=== PATIENT | female | born 1950 | race Caucasian/White ===

== ENCOUNTER 2022-05-22 08:01 | Outpatient (CLI) | payer OTHER, SELFPAY ==
[2022-05-22 13:53] LABS: Albumin* 4.4 g/dL (3.3-5.0); Chloride* 104 mmol/L (96-114)
[2022-05-22 13:54] LABS: Potassium* 3.8 mmol/L (3.6-5.1); Sodium* 139 mmol/L (135-149)
[2022-05-22 13:56] LABS: Carbon Dioxide* 25 mmol/L (20-32); Cholesterol* 151 mg/dL (90-199)
[2022-05-22 13:57] LABS: Alanine Aminotransferase* 44 U/L (4-35); Alkaline Phosphatase* 103 U/L (40-150); Aspartate Amino Transferase* 33 U/L (12-35); Bilirubin Total* 0.7 mg/dL (0.1-1.5); Blood Urea Nitrogen* 20 mg/dL (7-30); Calcium* 9.3 mg/dL (8.4-10.6); Creatinine* 0.9 mg/dL (0.5-1.5); Estimated Glomerular Filt Rate 69 ml/min; Glucose* 101 mg/dL (60-115); HDL Cholesterol* 34 mg/dL (>=50); LDL Cholesterol Calculated 80 mg/dL (<100); Total Protein* 7.7 g/dL (6.0-8.3); Triglycerides* 187 mg/dL (40-149)
[2022-05-22 14:12] LABS: Vitamin D 25 Hydroxy* 42 ng/mL (30-80)
[2022-05-22 14:43] LABS: Hepatitis C Virus Antibody* Negative (Negative)
== END 2022-05-22 08:02 | disposition home or self-care (01) ==
PROVIDERS: PCP Physician Assistant Medical; Visit Provider Family Medicine
DX: Z00.00 Encounter for general adult medical examination without abnormal findings (principal); Z11.59 Encounter for screening for other viral diseases; E03.9 Hypothyroidism, unspecified; R53.83 Other fatigue; Z13.6 Encounter for screening for cardiovascular disorders
CPT/HCPCS: 80053; 80061; 82306; 84439; 84443; 86803

== ENCOUNTER 2022-08-07 07:59 | Outpatient (CLI) | payer OTHER, SELFPAY ==
[2022-08-07 15:12] LABS: TSH With Reflex to FT4* 0.489 uIU/mL (0.270-4.200)
== END 2022-08-07 08:00 | disposition home or self-care (01) ==
LOC: FRMREF 08:00
PROVIDERS: PCP Physician Assistant Medical; Visit Provider Family Medicine
DX: E03.9 Hypothyroidism, unspecified (principal)
CPT/HCPCS: 84443

== ENCOUNTER 2022-08-24 15:21 | Outpatient (CLI) | payer OTHER, SELFPAY ==
--- NOTE | 2022-08-24 15:30 | CRLHL7_ITS ---
For Patients: As a result of the Century Cures Act, medical imaging exams and procedure reports are released immediately into your electronic medical record. You may view this report before your referring provider. If you have questions, please contact your health care provider. Indication: Cervical radiculopathy Technique: Multiplanar, multisequence MRI of the cervical spine obtained without contrast. Comparison: Cervical spine x-ray 08/14/2022 Findings: Straightening of the cervical lordosis. No significant spondylolisthesis. No evidence of acute fracture. No focal bony edema or suspicious marrow lesion. There appears to be mild baseline narrowing of the spinal canal, likely on a congenital basis. Incidentally noted partially empty sella variant. Included posterior fossa structures are otherwise unremarkable. The visualized spinal cord appears normal in course and caliber. However, there is mild cord flattening secondary to degenerative disc changes at C3-4, without evidence of cord compression or convincing cord signal abnormality. No suspicious findings in the prevertebral or paraspinal soft tissues. C2-C3: Facet arthropathy. Mild right neural foraminal narrowing. No left neural foraminal stenosis. Mild spinal canal narrowing. C3-C4: Central disc protrusion, uncovertebral/facet arthropathy. No significant neural foraminal stenosis. Moderate spinal canal stenosis. C4-C5: Mild uncovertebral/facet arthropathy. Mild bilateral neural foraminal narrowing. Mild spinal canal narrowing. C5-C6: Shallow disc-osteophyte complex, uncovertebral/facet arthropathy. Mild-moderate bilateral neural foraminal narrowing. Mild spinal canal narrowing. C6-C7: Disc-osteophyte complex, uncovertebral/facet arthropathy. Mild bilateral neural foraminal narrowing. Mild spinal canal narrowing. C7-T1: Shallow right subarticular disc bulge. No significant neural foraminal or spinal canal stenosis. Impression: 1. Cervical spondylosis superimposed on mild, presumably congenital baseline narrowing of the cervical spinal canal. 2. At C3-4, central disc protrusion contributing to moderate spinal canal stenosis. 3. Scattered mild-moderate neural foraminal narrowing and mild spinal canal narrowing elsewhere as detailed. 4. No evidence of cord compression or convincing cord signal abnormality. Dictated by Julia Marcus MD @ 08/25/2022 9:34:44 AM (Electronically Signed)
== END 2022-08-24 15:22 | disposition home or self-care (01) ==
LOC: MRI 15:25
PROVIDERS: PCP Physician Assistant Medical; Visit Provider Family Medicine
DX: M54.12 Radiculopathy, cervical region (principal); M47.812 Spondylosis without myelopathy or radiculopathy, cervical region; M50.21 Other cervical disc displacement, high cervical region; M50.30 Other cervical disc degeneration, unspecified cervical region
CPT/HCPCS: 72141

== ENCOUNTER 2022-09-13 16:00 | Outpatient (RCR) | payer OTHER, SELFPAY ==
--- NOTE | 2022-01-18 11:12 | PT.OPE ---
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 Pt presents in a sling today. Pt complains of pain in her neck, not so much in the shoulder, and says that she is struggling to sleep at night due to the pain despite use of pain pills. Pt reports that when she wakes in the night it is helpful for her to walk around her house and this helps her to relax. Pain Comments Date of Last Physician Visit 01/10/22 Current Work Status Retired Precautions Treatment Precautions/Contraindications PROM until 02/01/22. May start AAROM @ 5 weeks post-op Objective Palpation Pt very tender/sore with palpation to L UT, levator, scalenes, and pec minor. Other/Pertinent Objective L shoulder PROM Flexion - 90 Abduction - 90 IR - 45 ER - 0 Assessment Assessment/Impression Pt is a 71 year old female who presents to OP PT clinic post -op L RCR. Pt is struggling to manage her pain with pain pills and notes that her pain has been high since surgery. Pt is struggling to sleep as well due to pain as well as wash under her L arm. Pt has expected PROM of L shoulder today and reports pain with movement. Pt struggles to relax while I move her arm despite noting that she understands she is to relax during this portion of the exam. This is common for patient's who have had this surgery. Expectations following surgery and throughout the rehabilitation process were reviewed with the patient as well as precautions following her surgery. Pt gives verbal understanding to all directions for exercises, use of sling, showering, sleeping, etc. Skilled PT services are medically necessary to address deficits and return patient to highest level of function. Recommend physical therapy sessions 1-2/week for 8-12 weeks. Pt agrees with this plan. Printout of HEP was given for I completion and pt gives verbal understanding of each exercise. Primary Functional Limitations Lifting, reaching, laying on L side Plan of Care Rehabilitation Potential Excellent Physical Therapy Goals STG - To be completed in 2-3 weeks: 1. Pt will demonstrate 120 degrees shoulder flexion to improve mobility and reduce risk of adhesive capsulitis. 2. Pt will report reduction in shoulder pain by factor of 2 so that they may sleep without waking due to pain while shifting position in the night . 3. Pt will report consistent use of sling to protect integrity of repaired supraspinatus tendon. LTG - To be completed in 8-12 weeks: 1. Pt to be I with HEP so that they may I manage progression of symptoms. 2. Pt will report ability to sleep throughout the night without waking due to pain so that they may wake well rested with reduced mental fatigue during working hours. 3. Pt will demo full and pain free shoulder ROM and strength so that they may reach cans on top shelf in pantry so she may return to cooking for her family members. Treatment Plan/Direct Interventions Electrical Stimulation,Heat, Joint Mobilization,Manual Therapy,Self-Care/Home Management,Therapeutic Exercises Frequency/Duration 1-2/week for 8-12 weeks Patient Will Be Discharged From Therapy Completion of LTG(s),Skills Plateau,Independent w/HEP, Independently Progressing Evaluation Billing Untimed Code Treatment Minutes 45 Complexity Low Certification Information Initial Certification Date 01/16/22 Ending Certification Date 04/16/22
--- NOTE | 2022-03-28 17:40 | PT.OPDN ---
PT [place] Outpatient Daily Note PT [facility] Outpatient Daily Note Start: 01/16/22 15:21 Freq: Status: Active Protocol: Document 03/28/22 16:54 CJT (Rec: 03/28/22 17:40 CJT [id number]) E-signed By Andrew Almonte, PT PT OP Daily Progress Note Visit Information Note Type Recert/Progress Note Visit Number [id number] Insurance Authorized Visits tbd Physician Authorized Visits eval and treat Insurance Information Recert Due Date 04/16/22 Insurance Name Other; See Comments Insurance Information/Comments [employer] Medical Diagnosis Post-op L RCR, SAD, GHD Treating Diagnosis M25.512 - L shoulder pain M25.612 - Stiffness of L shoulder Referring Jose A Long Subjective Subjective Pt reports I hurt all over today. Is not sure why but has a lot of muscle soreness throughout her chest and scapular regions. Home Exercise Home Exercise Comments [id number] Objective Other/Pertinent Objective Shoulder AROM, PROM Flexion - 141, 116 Abduction - 150, 111 ER at 30 - 30 degrees ER at 90 - Full IR - L3, 70 L shoulder strength graded as 4/5 MMT for all motions with pain limiting strength at this time. Median nerve tension test positive for reproducing pain into pts L bicep and forearm Patient Instructed in Risks/Benefits Yes Therapeutic Exercise Therapeutic Exercise Minutes (minutes) 30 Therapeutic Exercise: To Restore UBE x 6 minutes, backward, Functional Status seat 5 Pulleys into flexion, scaption , abduction x 20 ea Short lever flexion 2 x 10 reps Wall flexion, abduction stretch 2 x 45 ea Wall bicep/chest stretch 2 x 45 ea IR stretch behind back 2 x 45 Manual Therapy Techniques Manual Therapy Minutes (minutes) 10 Manual Therapy Techniques STM performed to L UT, levator , pec minor/major, biceps mm belly, rhomboids, thoracic paraspinals, infraspinatus, subscapularis, and teres group to reduce tissue tension and improve extensibility. Median nerve glides x 10 reps, 5 hold Treatment Minutes Timed Code Treatment Minutes 40 Total Treatment Time 40 Billing Units Manual Therapy Units 1 Therapeutic Exercise Units 2 Assessment/Impression Assessment/Impression Rossana is progressing as expected in therapy thus far. Her primary complaint continues to be pain into her L bicep and pec. Today she complains of muscle aches and numbness/tingling into L>R hands. Pt had covid several weeks ago so I am not concerned that she may be infected but encouraged her to test again, as muscle aches were her only symptoms when she was covid positive. Pts L shoulder AROM and PROM are WNL at this point in her rehabilitation and are showing improvements weekly. We recently progressed to light strengthening exercises and will continue to progress these as able as well as focus on consistent stretching. Rossana has been faithful with her HEP and this seems to be helping her to progress timely . Plan of Care Physical Therapy Goals STG - To be completed in 2-3 weeks: 1. Pt will demonstrate 120 degrees shoulder flexion to improve mobility and reduce risk of adhesive capsulitis. MET 2. Pt will report reduction in shoulder pain by factor of 2 so that they may sleep without waking due to pain while shifting position in the night . MET 3. Pt will report consistent use of sling to protect integrity of repaired supraspinatus tendon. MET LTG - To be completed in 8-12 weeks: 1. Pt to be I with HEP so that they may I manage progression of symptoms. 2. Pt will report ability to sleep throughout the night without waking due to pain so that they may wake well rested with reduced mental fatigue during working hours. 3. Pt will demo full and pain free shoulder ROM and strength so that they may reach cans on top shelf in pantry so she may return to cooking for her family members. Daily Plan of Care Continue per POC Certification I Certify That: Therapy Services Provided, Therapy Plan Established, Therapy Plan Reviewed
--- NOTE | 2022-06-22 17:38 | PT.OPDN ---
PT [place] Outpatient Daily Note PT [facility] Outpatient Daily Note Start: 01/16/22 15:21 Freq: Status: Active Protocol: Document 06/22/22 16:45 CJT (Rec: 06/22/22 17:38 CJT [id number]) E-signed By Andrew Almonte, PT PT OP Daily Progress Note Visit Information Note Type Recert/Progress Note Visit Number [id number] Insurance Authorized Visits +16 on 04/24-07/08 Insurance Information Recert Due Date 07/08/22 Insurance Name Other; See Comments Insurance Information/Comments [employer] Medical Diagnosis Post-op L RCR, SAD, GHD Treating Diagnosis M25.512 - L shoulder pain M25.612 - Stiffness of L shoulder Referring Jose A Long Subjective Subjective Pt reports pain this AM as well as swelling in supraclavicular region on L. Continues to have soreness in this region following last session. Pt to see Dr. Guerrero next week for f/u. Home Exercise Home Exercise Comments [id number] Objective Other/Pertinent Objective R Shoulder ROM Flexion/Abduction/IR/ER - 165/ 175/T8/90 L Shoulder AROM Flexion/Abduction/IR/ER - 130/ 140/L2/45 L shoulder PROM Flexion/Abduction/IR/ER - 165/ 165/70/70 R Shoulder Strength - 5/5 MMT for all Flexion - /5 MMT Abduction - /5 MMT IR - /5 MMT ER - /5 MMT Empty Can - /5 MMT L Shoulder Strength Flexion - 5/5 MMT Abduction - 4/5 MMT IR - 5/5 MMT ER - 4+/5 MMT Empty Can - 4+/5 MMT Scapular strength measured as 4/5 MMT B Patient Instructed in Risks/Benefits Yes Therapeutic Exercise Therapeutic Exercise Minutes (minutes) 18 Therapeutic Exercise: To Restore UBE x 6 minutes Functional Status Shoulder flexion/adduction/ extension with ORB x 15 ea Shoulder IR/ER with ORB x 15 ea Shoulder flexion stretch in standing x 60 Self Care Management Training Self-Care Activity Minutes (minutes) 2 Self Care Management Training Kin Tape applied to L UT region to reduce swelling. Other Interventions Provided Other Modalities Provided H-Wave - electrodes placed at anterior/posterior L shoulder, brachioradialis and tricep; intensity set to pt preference Other Modalities Untimed Minutes 20 Treatment Minutes Untimed Code Treatment Minutes 20 Timed Code Treatment Minutes 20 Total Treatment Time 40 Billing Units Therapeutic Exercise Units 1 Electrical Stimulation Units 1 Assessment/Impression Assessment/Impression Rossana has shown slow progress in therapy thus far and still has room for improvement in regard to her ROM, strength, and function. Strength was grossly measured as 4+/5 MMT today in her L shoulder at this time. Rossana's ROM has gradually been progressing following adhesive capsulitis, but her pain in her shoulder and elbow has been very limiting. She has also had some recent swelling in her supraclavicular region on L with accompanied pain. Kin Tape to the region seems to be helping with her swelling and pain at this time. As far as the pain in Rossana's elbow region, I am not sure the exact cause of this. Its seems to me that she has some referred pain to her elbow region from her shoulder as well as some lingering tennis elbow. Rossana's visit approval period ends on 07/08/2022 for this claim and I would recommend continued PT services beyond this time to ensure that she has fully restored ROM and strength in her L shoulder. Plan of Care Physical Therapy Goals STG - To be completed in 2-3 weeks: 1. Pt will demonstrate 120 degrees shoulder flexion to improve mobility and reduce risk of adhesive capsulitis. MET 2. Pt will report reduction in shoulder pain by factor of 2 so that they may sleep without waking due to pain while shifting position in the night . MET 3. Pt will report consistent use of sling to protect integrity of repaired supraspinatus tendon. MET LTG - To be completed in 8-12 weeks: 1. Pt to be I with HEP so that they may I manage progression of symptoms. 2. Pt will report ability to sleep throughout the night without waking due to pain so that they may wake well rested with reduced mental fatigue during working hours. 3. Pt will demo full and pain free shoulder ROM and strength so that they may reach cans on top shelf in pantry so she may return to cooking for her family members. Daily Plan of Care Continue per POC
== END 2022-09-14 14:48 | disposition home or self-care (01) ==
PROVIDERS: PCP Physician Assistant Medical; Visit Provider Physician Assistant Surgical
DX: M25.512 Pain in left shoulder (principal); Z51.89 Encounter for other specified aftercare
CPT/HCPCS: 97032; 97110; 97140; 97161; 97164; 97535; T1013

== ENCOUNTER 2022-09-19 08:24 | Outpatient (CLI) | payer OTHER, SELFPAY | END 2022-09-19 08:25 | disposition home or self-care (01) | PROVIDERS: PCP Physician Assistant Medical; Visit Provider Family Medicine | DX: R53.83 Other fatigue (principal); E03.9 Hypothyroidism, unspecified | CPT/HCPCS: 84443; 86140 ==

== ENCOUNTER 2022-12-06 14:30 | Outpatient (CLI) | payer OTHER, SELFPAY ==
--- NOTE | 2022-12-06 14:40 | CRLHL7_ITS ---
For Patients: As a result of the Century Cures Act, medical imaging exams and procedure reports are released immediately into your electronic medical record. You may view this report before your referring provider. If you have questions, please contact your health care provider. BILATERAL SCREENING MAMMOGRAM WITH COMPUTER-AIDED DETECTION AND TOMOSYNTHESIS TECHNIQUE: CC and MLO views were obtained. These mammographic images have been obtained using full-field digital technique. These mammographic images were interpreted with the benefit of computer-aided detection. Breast Tomosynthesis was used in this interpretation. COMPARISON FILM: 04/30/19, 05/02/17, 02/23/15. FINDINGS: There are scattered areas of fibroglandular density IMPRESSION: There is no radiographic evidence for malignancy. ASSESSMENT: BI-RADS Category 1: Negative RECOMMENDATION: Routine screening mammogram in 1 year. A lay language report of this examination will be provided to the patient. Eliecer Smyth M.D. Diagnostic Radiologist [email or web address] NOREEN/Dictated by: Eliecer Smyth MD @ 12/07/2022 12:28:00 PM (Electronically Signed)
== END 2022-12-06 14:31 | disposition home or self-care (01) ==
LOC: MAMMO 14:31
PROVIDERS: PCP Physician Assistant Medical; Visit Provider Family Medicine
DX: Z12.31 Encounter for screening mammogram for malignant neoplasm of breast (principal)
CPT/HCPCS: 77063; 77067; T1013

== ENCOUNTER 2022-12-27 15:15 | Outpatient (CLI) | payer OTHER, SELFPAY ==
--- NOTE | 2022-12-27 15:30 | MR_ITS ---
[address] [address] Phone:?[phone] Fax:?[phone] Referring Physician Information: Charlie Guerrero M.D. [address] [facility] [address] Phone:?[phone] Fax:?[phone] Patient:Zaheer Flower D.O.B:?1950 Sex:?Female Phone:?[phone] [facility] MRN:[id number] Exam Date:?12/27/2022 EXAM: MRI of the LEFT SHOULDER, without contrast CLINICAL HISTORY: Chronic left shoulder pain and decreased range of motion not improving with physical therapy. History of previous surgery to the left shoulder. COMPARISONS: Plain radiographs 11/10/2021. TECHNICAL: MRI sequences of the left shoulder: Axials: PD, T2 Coronals: PD, STIR, T2 Sagittals: PD, T2 SEDATION: None CONTRAST: None FINDINGS: Bones: No fracture or suspicious bone marrow signal abnormality is seen. Coracoacromial arch: Acromion: No os acromiale. Surgical changes status post acromioplasty are suspected. Acromiohumeral space: The bony distance is unremarkable. Coracohumeral space: The bony distance is unremarkable. Acromioclavicular joint: Surgical changes status post subacromial decompression are suspected. Coracoclavicular ligament: The coracoclavicular ligament is intact. Rotator cuff muscles/tendons: Supraspinatus and infraspinatus: There are surgical changes status post rotator cuff repair. There is a 3 mm in AP dimension recurrent full-thickness tear of the posterior portion of the supraspinatus tendon just proximal to a surgical anchor with 6 mm of proximal/medial retraction of torn tendon fibers best seen on coronal series 4 image 15 and sagittal series 8 images 9 through 11. There is no atrophy of the supraspinatus or infraspinatus muscles. Teres minor: The teres minor tendon and muscle are intact. Subscapularis: Mild subscapularis tendinopathy. No muscular atrophy. Labrum and glenohumeral joint: No evidence of labral tear although evaluation is suboptimal because of nonarthrogram technique. Physiologic amount of joint fluid. No full-thickness chondral defect or subchondral bone marrow edema/cystic change is seen. No convincing evidence of capsular edema or thickening although evaluation is suboptimal because of lack of joint distention. Proximal biceps tendon, long head and short heads: The long and short heads of the proximal biceps tendon are intact. Bursae: Subacromial/subdeltoid: There is a small amount of fluid within the subacromial/subdeltoid bursa. Subcoracoid: No convincing subcoracoid bursal thickening/bursitis. IMPRESSION: 1. Surgical changes status post rotator cuff repair and suspected subacromial decompression; correlate with surgical injury. 2. 3 mm in AP dimension recurrent full-thickness tear of the posterior portion of the supraspinatus tendon just proximal to a surgical anchor with 6 mm of proximal/medial retraction of torn tendon fibers. 3. Mild subscapularis tendinopathy. 4. No atrophy of the rotator cuff musculature. 5. Intact biceps tendon. RCB Electronically signed on 12/28/2022 7:49:00 AM by Albert López M.D.
== END 2022-12-27 15:16 | disposition home or self-care (01) ==
LOC: MRI 15:20
PROVIDERS: PCP Family Medicine; Visit Provider Orthopaedic Surgery Sports Medicine
DX: M25.512 Pain in left shoulder (principal); M75.102 Unspecified rotator cuff tear or rupture of left shoulder, not specified as traumatic; Z98.890 Other specified postprocedural states
CPT/HCPCS: 73221; T1013

== ENCOUNTER 2023-01-03 16:00 | Outpatient (RCR) | payer OTHER, SELFPAY ==
--- NOTE | 2022-10-11 15:15 | PT.OPE ---
PT [place] Outpatient Eval PT [facility] Outpatient Eval Start: 10/10/22 14:50 Freq: Status: Active Protocol: Document 10/10/22 16:41 CJT (Rec: 10/10/22 16:45 CJT [id number]) E-signed By Andrew Almonte PT Physical Therapy Outpatient Evaluation Insurance Information Recert Due Date 12/08/22 Insurance Name Other; See Comments Insurance Information/Comments [employer] Provider Medical Diagnosis M48.02 - Stenosis, cervical Treating Diagnosis M54.2 - cervicalgia Referring Zelda Morris MD; Marilyn Thompson PA-C Subjective Subjective Pt presents with neck pain. Pt ntose her pain is a little better since she was last in our clinic about 1.5 months ago. Pt complains of swelling in her L supraclavicular region. She notes that when the pain starts, the swelling increases and vice versa. Pain is usually worse in the morning after she gest out of bed and starts performing some of her chores, Otherwise she has not noticed a pattern with her pain. Sweeping makes the pain worse. Doing the dishes also make the pain worse. Rossana notes that she has to lean on the edge of the sink to do the dishes. My hands feel awkward. The pain in my neck and shoulder seems to come out of nowhere. Pt notes that she would be very happy if her neck pain would go away . Pt also notes occasionally waking during the night due to pain and takes Tylenol to help reduce pain. Pt denies headaches. Pain Comments -04/17 Date of Last Physician Visit 09/19/22 Current Work Status Retired Precautions Therapy Limitations/Systems Review Not Limited Objective Other/Pertinent Objective Cervical ROM Extension - 55 Pain at C7 Flexion - 47 R/L [place] - 26/22 *pain in R UT region with both R/L Rotation - 52/52 * pain on ipsilateral cervical spine * pt notes pain behind her L ear with L rotation B Shoulder ROM is WNL Cervical Strength Extension - 4+/5 MMT Flexion - 4/5 MMT - pain at base of posterior cervical spine R/L [place] - 4/5 MMT R/L Rotation - 4+/5 MMT R Shoulder Strength Flexion - 4/5 MMT Abduction - 4/5 MMT IR - 4/5 MMT ER - 4/5 MMT Empty Can - 4/5 MMT L Shoulder Strength Flexion - 4/5 MMT Abduction - 4/5 MMT IR - 4/5 MMT ER - 4/5 MMT Empty Can - 4/5 MMT Palpation: pt reports tenderness/pain with palpation to B suboccipitals, cervical paraspinals, scalenes, SCM, UT , and levator. Pt also notes apin with palpation to cervical and upper thoracic spinous processes. Sustained pressure to middle and anterior scalenes on R causes increased pain into pts L forearm and hand. Posture: forward head and rounding of shoulders; thoracic kyphosis with hump at C7 Spurling's Compression: positive on L for pain in L UT region Median, radial, and ulnar nerve tension tests are positive on L for pain into L forearm and hand MRI Impression: 1. Cervical spondylosis superimposed on mild, presumably congenital baseline narrowing of the cervical spinal canal. 2. At C3-4, central disc protrusion contributing to moderate spinal canal stenosis . 3. Scattered mild-moderate neural foraminal narrowing and mild spinal canal narrowing elsewhere as detailed. 4. No evidence of cord compression or convincing cord signal abnormality. 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 Rossana 's neck pain seems to be mostly related to muscle tissue tension in her scapular and cervical regions. Her pain distal to her L upper trap is not clear at this time . Imaging does not indicate significant impingement or radicular issues in the cervical spine, nor does today 's testing. Her cervical spine and shoulders are quite weak and her cervical spine in particular is lacking ROM. She will benefit from strengthening and stretching these muscle groups consistently. I do feel that regular performance of nerve glides for the medial, radial, and ulnar nerves will be beneficial for her and at least worth trying as we are not able to determine the exact cause of her pain in her L UE. We will continue to reassess these tension tests as Rossana attends therapy sessions at our clinic. In our future sessions I would also like to try traction to see how Rossana responds to thsi in the hours and days following. The nature of the pts condition was explained and all questions were answered to the pts satisfaction. Skilled PT services are medically necessary to address deficits and return patient to highest level of function. Recommend physical therapy sessions 2/ week for 8 weeks. Pt agrees with this plan. Printout of HEP was given for I completion and pt gives verbal understanding of each exercise . Primary Functional Limitations sweeping floors, washing dishes Plan of Care Rehabilitation Potential Good Physical Therapy Goals STG - To be completed in 2-3 weeks: 1. Pt will demonstrate improved cervical strength to 5/5 MMT in all directions to provide greater support to cervical spine and head. 2. Pt will report reduction in neck pain by factor of 2 so that they may roll over in bed without waking due to pain. 3. Pt will report ability to sweep her floors without increase in neck pain so that she may complete her chores with manageable pain. LTG - To be completed in 6-8 weeks: 1. Pt to be I with HEP so that they may I manage progression of symptoms. 2. Pt will pain free cervical rotation ROM and lateral flexion ROM within 75% of normal limits so that they may look over shoulder while driving to watch for traffic. 3. Pt will report ability to wash a sink full of dishes with max 2/10 pain in her neck so that she may complete this chore daily with manageable pain. 4. Pt will report ability to sleep throughout the night without waking due to pain so that they may wake well rested with reduced mental fatigue during working hours. Treatment Plan/Direct Interventions Heat,Joint Mobilization,Manual Therapy,Self-Care/Home Management,Therapeutic Activities,Traction ( Mechanical) Frequency/Duration 2/week for 8 weeks Patient Will Be Discharged From Therapy Completion of LTG(s),Skills Plateau,Independent w/HEP, Independently Progressing Evaluation Billing Untimed Code Treatment Minutes 42 PT Eval No Charge No Complexity Low Certification Information Initial Certification Date 10/10/22 Ending Certification Date 12/08/22 Provider Signature Shows Agreement With POC & Medical Necessity Physician Signature & Date Requested Please Sign/Date Here Physician Comment/Change : Physician NPI Number #
== END 2023-03-07 13:13 | disposition home or self-care (01) ==
PROVIDERS: PCP Physician Assistant Medical; Referring Provider Physician Assistant Medical; Visit Provider Physician Assistant
DX: M48.02 Spinal stenosis, cervical region (principal); M54.2 Cervicalgia; Z51.89 Encounter for other specified aftercare
CPT/HCPCS: 97012; 97110; 97140; 97161; 97530; T1013

== ENCOUNTER 2024-08-29 10:50 | Outpatient (CLI) | payer OTHER, SELFPAY | END 2024-08-29 10:51 | disposition home or self-care (01) | PROVIDERS: PCP Family Medicine; Visit Provider Family Medicine | DX: E03.9 Hypothyroidism, unspecified (principal); E78.1 Pure hyperglyceridemia; I10 Essential (primary) hypertension | CPT/HCPCS: 80053; 80061; 82043; 82570; 84439; 84443 ==

== ENCOUNTER 2024-11-12 14:30 | Outpatient (CLI) | payer OTHER, SELFPAY ==
--- NOTE | 2024-11-12 14:30 | CRLHL7_ITS ---
For Patients: As a result of the Century Cures Act, medical imaging exams and procedure reports are released immediately into your electronic medical record. You may view this report before your referring provider. If you have questions, please contact your health care provider. XR DXA BONE MINERAL DENSITY (BMD) Current height (in): 63.0. Weight (lb): 164.0. Menopause age: 45. Ethnicity: White. Reason for exam: Screening for osteoporosis. 1. Have you had a previous hip or vertebral fracture? No. 2. Have you had any fractures during your adult life which did not result from significant trauma (e.g., auto accident)? No. 3. Did either of your parents have a hip fracture? No. 4. Do you smoke? No. 5. Have you ever taken Glucocorticoids? No. 6. Do you have rheumatoid arthritis? No. 7. Do you have secondary osteoporosis? No. 8. Do you drink 3 or more alcoholic drinks per day? No. 9. Are you being treated for osteoporosis? No. 10. Have you ever taken any of the following medications: Actonel, Evista, Fosamax, Miacalcin, Reclast, Boniva, Forteo, HRT (i.e. estrogen/hormone therapy), Protelos, Prolia, Vitamin D, Calcium, other ??? please specify. ANSWER: No. 11. Do you have any of the following medical conditions: Anorexia or bulimia, asthma or emphysema, end stage renal disease, hyperparathyroidism, any seizure disorders, cancer, inflammatory bowel diseases, hysterectomy, other ??? please specify. ANSWER: No. 12. What was your maximum height (inches)? 63. 13. Do you perform weight bearing exercise regularly? No. 14. Do you regularly consume dairy products? No. 15. Do you drink caffeinated beverages? Yes. 16. At what age did your period start? 15. 17. Are you premenopausal? No. 18. How many full-term pregnancies have you had? 3. 19. Have you ever missed your period for more than 6 months in a row (not including or menopause)? Yes. TECHNIQUE: Bone mineral density study was performed using the [employer]. FINDINGS: The results of the study expressed as bone mineral density (BMD) are as follows: Lumbar spine L1 to L4: BMD: 0.927 g/cm2. T-score: -1.1. Z-score: 1.2 Neck Left: BMD: 0.882 g/cm2. T-score: 0.3. Z-score: 2.3 Right: BMD: 0.897 g/cm2. T-score: 0.4. Z-score: 2.4 Total Left: BMD: 1.102 g/cm2. T-score: 1.3. Z-score: 3.0 Right: BMD: 1.114 g/cm2. T-score: 1.4. Z-score: 3.1 IMPRESSION: Osteopenia. FRAX 10-year Fracture Risk Major Osteoporotic Fracture: 7.0 percent Hip Fracture: 0.4 percent Reported Risk Factors: [place] () Neck BMD = 0.882, BMI = 29.1 Demetris Hackett M.D. Diagnostic/Nuclear Medicine Radiologist [email or web address] Transcribed: 2:20 pm DW/Dictated by: Demetris Hackett MD @ 11/13/2024 1:32:00 PM (Electronically Signed)
--- NOTE | 2024-11-12 15:20 | CRLHL7_ITS ---
For Patients: As a result of the Century Cures Act, medical imaging exams and procedure reports are released immediately into your electronic medical record. You may view this report before your referring provider. If you have questions, please contact your health care provider. INDICATION: BILATERAL SCREENING MAMMOGRAM, ASYMPTOMATIC 74 YEAR OLD FEMALE COMPARISON: 12/06/22, 04/30/19, 05/02/17 TECHNIQUE: CC and MLO views were obtained. These mammographic images have been obtained using full-field digital technique. These mammographic images were interpreted with the benefit of computer aided detection and tomosynthesis. BREAST COMPOSITION: There are scattered areas of fibroglandular density. FINDINGS: No suspicious findings. ASSESSMENT: BI-RADS 1 Negative RECOMMENDATION: Annual screening mammogram. A lay language report of this examination will be provided to the patient. Dictated by: Eliecer Smyth MD @ 11/14/2024 09:10:58 (Electronically Signed)
== END 2024-11-12 14:31 | disposition home or self-care (01) ==
LOC: RAD 14:31
PROVIDERS: PCP Family Medicine; Visit Provider Family Medicine
DX: Z12.31 Encounter for screening mammogram for malignant neoplasm of breast (principal); Z13.820 Encounter for screening for osteoporosis; M85.89 Other specified disorders of bone density and structure, multiple sites
CPT/HCPCS: 77063; 77067; 77080; T1013

== ENCOUNTER 2024-11-28 07:39 | Outpatient (CLI) | payer OTHER, SELFPAY | END 2024-11-28 07:40 | disposition home or self-care (01) | LOC: NFLDREF 12-04 11:01 | PROVIDERS: PCP Family Medicine; Referring Provider Family Medicine; Visit Provider Family Medicine | DX: E03.9 Hypothyroidism, unspecified (principal); E78.1 Pure hyperglyceridemia; I10 Essential (primary) hypertension | CPT/HCPCS: 80061; 84439; 84443 ==